=== PATIENT | male | born 1970 | race African-American/Black ===

== ENCOUNTER 2021-09-26 17:18 | Emergency (ER) | payer BC, SELFPAY ==
[2021-09-26 17:27] VITALS: BP 155/80; PULSE 72; RESP 16; TEMP 36.8; O2SAT 98
--- NOTE | 2021-09-26 17:49 | ED.URI ---
HPI - URI/Sore Throat General Chief Complaint: Upper Respiratory Infection Stated Complaint: chest pain, wheezing Time Seen by Provider: 09/26/21 17:49 Source: patient, RN notes reviewed and old records reviewed Mode of arrival: ambulatory Limitations: no limitations History of Present Illness HPI Narrative: 51 year old male presents to [facility] care with one week duration of cough, wheezing, nasal congestion, sore throat,itchy nose and red watering eyes. Patient states that he has no fevers, chills, or sweats, denies any body aches, has had COVID vaccination and booster, has not had flu shot. Patient states that he usually gets the same symptoms every year around this time. Patient states that he has been taking Zyrtec for his symptoms, nasal spray, and has an inhaler he has used for the cough.Patient denies any acute shortness of breath or any chest pain just wheezing with his breathing at times. MD elicited complaint: cough, rhinorrhea, nasal congestion and other (itchy red watery eyes) Pertinent past history: seasonal allergies Onset (ago): week(s) (1) Consistency: progressively worsening Description of mucous: clear Able to tolerate fluids by mouth: Yes Treatments prior to arrival: other (zyrtec) Related Data Allergies Allergy/AdvReac Type Severity Reaction Status Date / Time No Known Allergies Allergy Verified 09/26/21 17:34 Review of Systems Review of Systems: CONSTITUTIONAL: Denies fever, chills, or sweats. EYES: Denies visual changes, redness, or discharge.red watery itchy eye ENT:Positive for rhinorrhea, congestion,no sore throat, or otalgia. CARDIOVASCULAR: Denies chest pain, palpitations, or edema. RESPIRATORY: Positive for cough with wheezing denies acute shortness of breath GASTROINTESTINAL: Denies abdominal pain, nausea, vomiting, or diarrhea. GENITOURINARY: Denies dysuria or hematuria. SKIN: Denies rash or itching. MUSCULOSKELETAL: Denies back pain, joint pain, or myalgia. NEUROLOGIC: Denies headache, numbness, or weakness. PSYCHIATRIC: Denies anxiety or depression. [facility] Past Medical History Medical History (Updated 09/26/21 @ 19:13 by Priyanka Shahid NP) Allergic rhinitis Hypertension Seasonal allergies Social History Social History (Updated 09/26/21 @ 19:13 by Priyanka Shahid NP) Smoking status: Never smoker Alcohol intake: current Alcohol use details: rare social Substance use type: does not use Gender identity (if verbalized by the patient): Male Comments At time of signature, agree with nursing past medical, surgical, social and family history. There is no relevant family history pertinent to the presenting complaint Exam Narrative: GENERAL: Well-appearing, well-nourished, obese,and in no acute distress. HEAD: Normocephalic, atraumatic. EYES: PERRLA and EOMI.bilateral eye watering with sclera redness and itching, conjunctiva light pink ENT: Nares light red with clear rhinorrhea no epistaxis. Mucous membranes moist.TM's normal with good light reflex, throat mild redness with no lesions or exudates or tonsil swelling, post nasal drainage noted. NECK: Supple.no lymphadenopathy CHEST: Clear faint expiratory wheezes upper lobes on auscultation. No respiratory distress.SAO2 98% on room air HEART: Regular rate and rhythm. No murmur heard. Normal peripheral pulses. ABDOMEN: Soft, nontender, nondistended, normal active bowel sounds. EXTREMITIES: Normal range of motion. No edema. SKIN: Warm, dry, no rash. NEURO: No focal deficits. Alert and oriented x3. Course Course Level of Care: Express Care Visit Vital Signs Vital signs: Vital Signs Temperature 36.8 C 09/26/21 17:27 Pulse Rate 72 09/26/21 17:27 Respiratory Rate 16 09/26/21 17:27 Blood Pressure 155/80 H 09/26/21 17:27 Pulse Oximetry 98 09/26/21 17:27 Temperature 36.8 C 09/26/21 17:27 Pulse Rate 72 09/26/21 17:27 Respiratory Rate 16 09/26/21 17:27 Blood Pressure 155/80 H 09/26/21 17:27 Pulse Oximet
== END 2021-09-26 18:15 | disposition home or self-care (01) ==
PROVIDERS: Emergency Provider Registered Nurse
DX: J40 Bronchitis, not specified as acute or chronic (principal); J30.89 Other allergic rhinitis; I10 Essential (primary) hypertension
CPT/HCPCS: 99213; G0463